=== PATIENT | female | born 1995 | race Caucasian/White ===

== ENCOUNTER → 2018-10-02 17:35 | Outpatient (CLI) | payer OTHER, SELFPAY ==
[2018-10-02 10:17] VITALS: BMI 41.1
[2018-10-08 10:48] LABS: HPV Reflexed? NOT INDICATED
== END ==
PROVIDERS: Family Provider Family Medicine; PCP Family Medicine; Referring Provider Obstetrics & Gynecology; Visit Provider Obstetrics & Gynecology
DX: Z12.4 Encounter for screening for malignant neoplasm of cervix (principal)
CPT/HCPCS: 87624; 88175; G0145

== ENCOUNTER → 2019-07-12 10:08 | Outpatient (CLI) | payer OTHER, SELFPAY ==
[2019-03-02 08:11] VITALS: BMI 41.1
--- NOTE | 2019-07-12 10:16 | MRI_ITS ---
STUDY: MRI RIGHT ANKLE WITHOUT CONTRAST REASON FOR EXAM: Lateral right ankle pain, no recent injury. TECHNIQUE: Standardized fat and water weighted pulse sequences were obtained in all 3 orthogonal planes. COMPARISON: None. FINDINGS: Normal subcutis adipose space. There is a ganglion cyst extending from the middle subtalar articulation into the tarsal tunnel (T2 axial images 15, 16; inversion recovery sagittal image 15) measuring 1.1 x 0.7 x 1.2 cm (AP x transverse x length). There is a very small volume of fluid in the perimalleolar posterior tibialis tendon sheath (T2 axial images 9-14). The posterior tibialis tendon is morphologically normal. Normal flexor digitorum longus tendon. Normal flexor hallucis longus tendon. Normal peroneus longus and brevis tendons. Normal tibialis anterior tendon. Normal extensor hallucis longus tendon. Normal extensor digitorum longus tendons. Normal Achilles tendon and teno-osseous insertion. Normal plantar fascia. Normal plantar calcaneal tubercles. Normal intrinsic muscles of the rearfoot. Normal distal tibiofibular syndesmotic ligamentous complex. Normal lateral ligamentous complex. Normal subtalar ligaments and sinus tarsi. Normal deltoid ligamentous complexes. Normal plantar calcaneonavicular (spring) ligament. Normal tibiotalar articulation. Normal talar dome. There is a small posterior subtalar joint effusion (inversion recovery sagittal images 7-10). There is a talonavicular joint effusion (inversion recovery sagittal images 11, 12). Normal calcaneocuboid articulation. Normal navicular-cuneiform articulations. MRI/Lower Ext Joint Only (Routine) IMPRESSION: Ganglion cyst extending into the tarsal tunnel. Very mild posterior tibialis tenosynovitis Posterior subtalar and talonavicular joint effusions. Electronically Signed: Cesar Strauss MD at 12:42 EST Tel , Service support ,
== END ==
PROVIDERS: Family Provider Family Medicine; PCP Family Medicine; Referring Provider Podiatrist Foot & Ankle Surgery; Visit Provider Podiatrist Foot & Ankle Surgery
DX: M25.571 Pain in right ankle and joints of right foot (principal)
CPT/HCPCS: 73721

== ENCOUNTER → 2020-07-23 12:28 | Outpatient (CLI) | payer OTHER, SELFPAY ==
[2020-01-02 12:11] VITALS: BMI 41.1
[2020-07-23 13:53] LABS: Hemoglobin A1c 5.3 % (3.8-5.6)
[2020-07-23 13:55] LABS: Prolactin 8.7 ng/mL; Thyroid Stim Hormone (TSH) 1.07 uIU/mL (0.358-3.74)
[2020-07-23 14:25] LABS: HIV - WCH Non-Reactive (Nonreactive); Hepatitis B Surface Antigen Non-Reactive (Nonreactive); Hepatitis C Antibody Non-Reactive (Nonreactive); Rubella IgG Reactive (Nonreactive)
[2020-07-24 03:40] LABS: Rapid Plasmin Reagin (RPR) NONREACTIVE (NONREACTIVE)
[2020-07-25 07:51] LABS: V-Zoster IgG (Immunity) 2321 index (Immune >165)
== END ==
PROVIDERS: PCP Family Medicine
DX: E16.8 Other specified disorders of pancreatic internal secretion (principal); E22.1 Hyperprolactinemia; E02 Subclinical iodine-deficiency hypothyroidism; Z01.83 Encounter for blood typing; Z11.59 Encounter for screening for other viral diseases; Z11.8 Encounter for screening for other infectious and parasitic diseases
CPT/HCPCS: 36415; 83036; 84146; 84443; 86592; 86703; 86762; 86787; 86803; 86850; 86900; 86901; 87340

== ENCOUNTER 2021-08-05 12:57 | Outpatient (CLI) | payer OTHER, SELFPAY ==
[2021-08-05 13:20] LABS: Absolute Lymphocyte Count 2.29 X10^3/uL (0.83-4.51); Absolute Neutrophil Count 10.4 X10^3/uL (2.0-7.7); Basophil# 0.02 X10^3/uL; Basophil% 0.1 % (0-1); Eosinophil# 0.18 X10^3/uL; Eosinophils% 1.3 % (0-5); Hematocrit 38.2 % (37-47); Lymphocyte # 2.29 X10^3/ul (0.83-4.51); Lymphocyte % 16.9 % (19-41); Mean Corp Hgb Conc 31.4 g/dL (32-36); Mean Corpuscular Hgb 24.6 pg (27.0-32.0); Mean Corpuscular Volume 78.3 fL (81-99); Mean Platelet Vol. 9.5 fl (6.2-12.0); Monocyte# 0.58 X10^3/uL; Monocyte% 4.3 % (0-10); NRBC Flagged by Analyzer 0 % (0-5); Neutrophil # 10.41 X10^3/uL (2.7-7.7); Platelet Count 328 K/mm3 (150-450); RBC Distribution Width CV 14.1 % (11.6-14.6); RBC Distribution Width SD 39.8 fl (35.1-43.9); Red Blood Count 4.88 M/mm3 (4.2-5.4); White Blood Count 13.5 K/mm3 (4.4-11.0)
[2021-08-05 13:55] LABS: Glucose Challenge Gest 1H 50g 86 mg/dL (70-140)
[2021-08-05 14:36] LABS: HIV - WCH Non-Reactive (Nonreactive); Hepatitis B Surface Antigen Non-Reactive (Nonreactive); Hepatitis C Antibody Non-Reactive (Nonreactive); Rubella IgG Reactive (Nonreactive); Syphilis Antibodies Non-reactive
[2021-08-05 16:51] LABS: Amphetamine Urine VISTA NEGATIVE (<1000 ng/mL); Barbiturate Urine VISTA NEGATIVE (< 200 ng/mL); Benzodiazepine Urine VISTA NEGATIVE (< 200 ng/mL); Cocaine Urine VISTA NEGATIVE (< 300 ng/mL); Ecstacy Urine VISTA NEGATIVE (< 500 ng/mL); Methadone Urine VISTA NEGATIVE (< 300 ng/mL); PCP Urine VISTA NEGATIVE (< 25 ng/mL); THC Urine VISTA NEGATIVE (< 50 ng/mL); Vista UDS pH Range 5
[2021-08-08 00:06] LABS: Chlamydia By Nucleic Acid AMP Negative (Negative)
[2021-08-08 16:13] LABS: Gonococcus By Nucleic Acid AMP Negative (Negative)
[2021-08-14 15:51] LABS: HPV Reflexed? NOT INDICATED
== END 2021-08-05 23:59 | disposition short-term general hospital (02) ==
PROVIDERS: PCP Family Medicine; Referring Provider Obstetrics & Gynecology; Visit Provider Obstetrics & Gynecology
DX: O09.90 Supervision of high risk pregnancy, unspecified, unspecified trimester (principal); Z3A.00 Weeks of gestation of pregnancy not specified; Z12.4 Encounter for screening for malignant neoplasm of cervix
CPT/HCPCS: 36415; 80307; 82950; 85025; 86703; 86762; 86780; 86803; 86850; 86900; 86901; 87086; 87088; 87340; 87491; 87591; 88175; G0145

== ENCOUNTER → 2022-11-09 | Outpatient (CLI) | payer OTHER, SELFPAY ==
[2022-11-09 15:50] LABS: Erythrocyte Sedimentation Rate 40 mm/hr (0-30)
[2022-11-09 15:52] LABS: Absolute Lymphocyte Count 2.32 X10^3/uL (0.83-4.51); Absolute Neutrophil Count 7.5 X10^3/uL (2.0-7.7); Basophil# 0.04 X10^3/uL; Basophil% 0.4 % (0-1); Eosinophil# 0.16 X10^3/uL; Eosinophils% 1.5 % (0-5); Hematocrit 40.8 % (37-47); Hemoglobin 12.2 g/dL (12.0-15.0); Lymphocyte # 2.32 X10^3/ul (0.83-4.51); Lymphocyte % 21.9 % (19-41); Mean Corp Hgb Conc 29.9 g/dL (32-36); Mean Corpuscular Hgb 22.5 pg (27.0-32.0); Mean Corpuscular Volume 75.1 fL (81-99); Mean Platelet Vol. 10.5 fl (6.2-12.0); Monocyte# 0.54 X10^3/uL; Monocyte% 5.1 % (0-10); NRBC Flagged by Analyzer 0 % (0-5); Neutrophil # 7.53 X10^3/uL (2.7-7.7); Neutrophil % 70.9 % (47-70); Platelet Count 341 K/mm3 (150-450); RBC Distribution Width CV 16.6 % (11.6-14.6); RBC Distribution Width SD 44.6 fl (35.1-43.9); Red Blood Count 5.43 M/mm3 (4.2-5.4); White Blood Count 10.6 K/mm3 (4.4-11.0)
[2022-11-09 16:11] LABS: ALB/GLOB Ratio 0.9 RATIO (0.9-2.4); AST(SGOT) 16 U/L (15-37); Alanine Aminotransfer ALT/SGPT 21 U/L (13-56); Albumin, Serum 3.5 g/dL (3.2-5.0); Alkaline Phosphatase 97 U/L (45-117); Anion Gap 6 (5-15); BUN 12 mg/dL (7-18); Chloride 108 mmol/L (98-107); EST Glomerular Filtration Rate 127 mL/min (>60); Est Glom Filt Rate - Afr Amer 154 mL/min (>60); Globulin 3.9 g/dL (2.2-4.2); Glucose 82 mg/dL (74-106); Potassium 3.9 mmol/L (3.5-5.1); Protein, Total 7.4 g/dL (6.4-8.2); Sodium Level 138 mmol/L (136-145); Thyroid Stim Hormone (TSH) 1.42 uIU/mL (0.358-3.74)
== END | disposition home or self-care (01) ==
LOC: MFPLAB 12:05
PROVIDERS: PCP Family Medicine; Referring Provider Family Medicine; Visit Provider Family Medicine
DX: R53.81 Other malaise (principal); R53.83 Other fatigue
CPT/HCPCS: 36415; 80053; 84443; 85025; 85652

== ENCOUNTER → 2024-09-03 | Outpatient (CLI) | payer OTHER, SELFPAY ==
[2024-09-07 12:46] LABS: HPV Reflexed? NOT INDICATED
== END | disposition home or self-care (01) ==
LOC: LABSPEC 11:07
PROVIDERS: PCP Family Medicine; Referring Provider Obstetrics & Gynecology; Visit Provider Obstetrics & Gynecology
DX: Z12.4 Encounter for screening for malignant neoplasm of cervix (principal)
CPT/HCPCS: 88175; G0145

== ENCOUNTER 2025-06-24 14:52 | Emergency (ER) | payer OTHER, SELFPAY ==
[2025-06-24 14:53] VITALS: BP 152/112; PULSE 123; RESP 20; TEMP 36.1; O2SAT 100; BMI 47.5
--- NOTE | 2025-06-24 15:08 | RAD_ITS ---
PROCEDURE: NECK FOR SOFT TISSUE 06/24/2025 REASON FOR EXAM: BIPHASIC STRIDOR TECHNIQUE: Procedure Code: RADNE Modality: DX Procedure: NECK FOR SOFT TISSUE FINDINGS: No acute fracture or subluxation. No significant degenerative changes in the cervical spine. The prevertebral soft tissues appear unremarkable. The visualized airway is patent. No appreciable parapharyngeal soft tissue thickening. No appreciable airway narrowing. RAD/Neck for Soft Tissue IMPRESSION: As above. Reading Location: [id number]
--- NOTE | 2025-06-24 15:10 | EX.ED.DYSGE1 ---
HPI History of Present Illness Chief Complaint: Shortness of Breath Detail of Chief Complaint: URI symptoms, wheezing, productive cough Informant: patient Onset/Context/Timing Onset: Days (Approximately 3 days ago) Context: Sudden Onset Timing: Intermittent Quality: Reports wheezing and using her rescue inhaler Location: Upper respiratory Current Severity: Mild Maximum Severity: Moderate Worsened by: Nothing specific Relieved by: Nothing Associated Symptoms Associated Symptoms: Rhinorrhea, congestion and sore throat Narrative Narrative: Patient is a 30-year-old female. She has history of anxiety. She is a non-smoker. She presents with upper respiratory tract infection symptoms that started 3 days ago. She does endorse rhinorrhea, congestion and sore throat. She does have a cough which is productive of whitish colored sputum. She denies history of VTE. She denies leg pain, swelling discoloration. She has no risk factors for VTE. She denies headache, visual, ocular auditory symptoms. She denies ear pain or drainage. She denies chest pressure, tightness or heaviness. Denies pain with breathing. She denies abdominal pain, nausea, vomiting or diarrhea. She has no urologic symptoms. Patient completed a course of steroids 1 month ago. 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 Allergic rhinitis Contact dermatitis and eczema due to plant Seizures Reactive airway disease Anxiety Home Medications ?Medication ?Instructions ?Recorded ?Last Taken ?Type sertraline 100 mg tablet (Zoloft) 200 mg PO DAILY 07/21/21 06/23/25 History acetazolamide 500 mg 500 mg PO BID 07/01/24 06/23/25 History capsule,extended release multivitamin no.47-iron fum 27 1 cap PO .q day 09/03/24 06/23/25 History mg-folate no.1 1 mg-dha 300 mg capsule (PNV-DHA) albuterol sulfate 90 mcg/actuation 1 puff inhalation Q6H PRN PRN 06/24/25 06/24/25 History aerosol inhaler wheezing Allergy/AdvReac Type Severity Reaction Status Date / Time amoxicillin Allergy Hives Verified 06/24/25 14:53 Latex, Natural Rubber AdvReac Hives Verified 06/24/25 14:53 Family History Other Alcoholism Cancer Diabetes Psychological disorder Surgical History [place] teeth extracted spinal tap Hx of oral surgery Social History household members: spouse housing: house current occupational status: employed current occupation: [employer] Smoking Status: Never smoker second hand exposure: Yes alcohol intake: current details: social substance use type: does not use caffeine: Yes what type of physical activity do you participate in: walking seatbelt use: always do you feel safe at home: Yes additional social history: [employer] ROS ROS ED Constitutional Constitutional ED: Denies chills, fever(s), subjective or sweats Eyes Eyes: Denies blurry vision, change in vision or diplopia ENT ENT ED: Reports rhinorrhea and sore throat; Denies ear pain Cardiovascular Cardiovascular: Denies chest pain, orthopnea, palpitations or paroxysmal nocturnal dyspnea Respiratory/Chest Respiratory/Chest: Reports cough and sputum; Denies dyspnea, dyspnea on exertion, orthopnea or paroxysmal nocturnal dyspnea Gastrointestinal Gastrointestinal: Denies abdominal pain, diarrhea, nausea or vomiting Musculoskeletal Musculoskeletal: Denies arthralgias or myalgias Integumentary Denies rash Neurologic Neurologic: Denies headache(s) EXAM Physical Exam Const Vital Signs: 06/24/25 14:53 06/24/25 15:24 06/24/25 15:30 Temperature 97.0 F L Temperature Source Temporal Pulse Rate 123 H 107 H Respiratory Rate 20 H 18 Respiratory Effort Normal Non-Labored Respiratory Depth Shallow Respiratory Pattern Tachypnea Blood Pressure 152/112 H Blood Pressure Mean 125 Pulse Ox 100 Oxygen Delivery Method Room Air Room Air Positive well nourished and well developed General Appearance ED: well developed; Negative for pallor HEENT Reports moist mucous membranes HEENT Narrative: Posterior pharynx erythema or exudate. Uvula midline. No deviation with protrusion. Ears normal. External auditory canal normal. TMs are normal. Nares patent. There is no frontal, ethmoid or maxillary sinus tenderness to percussion. Eyes PERRL and EOMs intact bilaterally General Eye ED: Negative for pale conjunctiva or scleral icterus Neck no lymphadenopathy, supple and no JVD Neck Narrative: Trachea is midline. She has biphasic stridor. Resp normal respiratory effort and clear to auscultation bilaterally Effort and Inspection: Negative for retractions Auscultation: Negative for rales, rhonchi or wheezes Cardio regular rhythm, S1 normal heart sound, S2 normal heart sound and no murmurs Rate: tachycardic GI normal to inspection, nondistended, normoactive bowel sounds, non-tender, non-distended and no masses; Negative for hepatosplenomegaly Back/Spine Back/Spine Narrative: Inspection is normal. Neuro oriented x3 and CN's II-XII intact bilaterally Sensorium / Orientation: alert Psych mental status grossly normal Skin no rashes or lesions noted and no wounds General Skin Exam: Negative for jaundice or pallor MDM MDM MDM Narrative Medical decision making narrative: Patient with upper respiratory tract infectious symptoms. Patient denies change in voice. Her voice sounds slightly hoarse. Since there is no expiratory wheezing on auscultation of lungs and breath sounds that are appreciated are all upper airway suspect that she has upper respiratory infection. Will need to rule out retropharyngeal abscess, parapharyngeal abscess, epiglottitis. Especially since she complains of sore throat and her posterior pharynx is unremarkable. Racemic epinephrine and Decadron were ordered. She probably has undiagnosed obstructive sleep apnea. She does have a BMI of 47.6. History & Record Review Additional record(s) reviewed:: Prior outpatient record (OB note authored by Dr. Susan Montaño on September 03, 2024Was reviewed. Patient was seen to have her IUD removed. And for gynecologic exam.), Prior labs (Last blood work results were November 09, 2022.) and Other (Seen for upper respiratory infection July 01, 2024. Note was authored by Jim carlos NP.) Radiography Chest X-Ray - ED: 2 View (Interview interpreted by me at 1553. There is no obvious epiglottitis. There is notes of retropharyngeal abscess or preferential abscess. There is no enlarged lingular tonsils.) and Read by ED Physician Diagnostic Testing: Clinical Impression(s) from Imaging Studies Soft Tissue Neck X-Ray 06/24/25 15:08 IMPRESSION: As above. Reading Location: [id number] The body of the radiologist report was read. No acute findings were noted. Treatment and Re-Evaluation :: Spoke with patient at 1601. She feels much better. She improved significantly after the racemic epinephrine. She was informed this is a viral infection. She was tested for obstructive sleep apnea about 3 years ago. Will recommend following up with her primary care physician for retesting. Discharge Plan Triage Chief Complaint: Shortness of Breath ED Provider: Cameron King Dx/Rx/DC Orders Clinical Impression: Biphasic stridor, Upper respiratory infection with cough and congestion, Elevated blood-pressure reading without diagnosis of hypertension, Tachycardia, BMI 45.0-49.9, adult Instructions: ED Hypertension, To Be Confirmed, ED URI, Viral, No Abx (Adult) Prescriptions: No Action sertraline [Zoloft] 100 mg tablet 200 mg PO DAILY acetazolamide 500 mg capsule, extended release 500 mg PO BID Patient Comments: only taking once daily PNV-DHA 27 mg iron-1 mg -300 mg capsule 1 cap PO .q day albuterol sulfate 90 mcg/actuation HFA aerosol inhaler 1 puff INHALATION Q6H PRN PRN (Reason: wheezing) Primary Care Provider: LIZ TAYLOR Referrals: Medina Beltre MD [Med Staff - Exercise Instructor, [facility]] - 1-2 Weeks Activity Restrictions/Additional Instructions: 1. You had multiple blood pressure readings with that were elevated. Recommend follow-up with Dr. Beltre or person in the practice to have blood pressure reassessed in 1 to 2 weeks. 2. Recommend possible repeat sleep study to assess for obstructive sleep apnea 3. If you have any difficulty swallowing or breathing return to the emergency Print Language: Omani Disposition Disposition: Home, Self Care
[2025-06-24] MEDS: Racepinephrine HCl 0.5 ML VIAL.NEB. INHALATION (15:23)
[2025-06-24 15:24] VITALS: PULSE 107; RESP 18
[2025-06-24 15:30] VITALS: O2SAT 100
[2025-06-24 16:17] VITALS: BP 136/92; PULSE 79; RESP 20; TEMP 36.6; O2SAT 100
== END 2025-06-24 16:17 | disposition home or self-care (01) ==
PROVIDERS: Emergency Provider Emergency Medicine; PCP Nurse Practitioner Adult Health; Visit Provider Emergency Medicine
DX: J06.9 Acute upper respiratory infection, unspecified (principal); F41.9 Anxiety disorder, unspecified; R03.0 Elevated blood-pressure reading, without diagnosis of hypertension; R05.9 Cough, unspecified; R06.1 Stridor; R00.0 Tachycardia, unspecified; J34.89 Other specified disorders of nose and nasal sinuses; F42.9 Obsessive-compulsive disorder, unspecified
CPT/HCPCS: 70360; 94640; 99282